=== PATIENT | female | born 1975 | race Caucasian/White ===

== ENCOUNTER 2018-08-05 14:27 | Emergency (ER) | END 2018-08-05 20:00 | disposition home or self-care (01) ==

== ENCOUNTER 2019-07-31 22:36 | Emergency (ER) | payer OTHER ==
[~2019-07-31] VITALS: Ht 162.6 cm; Wt 72.0 kg
[~2019-07-31 22:36] MED LIST: CEPH-443 PO; IBUP-1542 PO; ZOF8 PO
[2019-07-31 22:45] VITALS: Ht 162.6 cm; Wt 72.0 kg
[2019-08-01] MEDS ORDERED: SOD CHLORIDE 0.9% 1,000 ML IV STA (02:58)
[2019-08-01] MEDS ORDERED: ONDANSETRON 4 MG INJ IV STA (02:58)
[2019-08-01] MEDS ORDERED: KETOROLAC 15 MG INJ IV STA (02:58)
[2019-08-01] MEDS ORDERED: LIDOCAINE 2% VISC 10 ML CUP PO ONE (03:00)
[2019-08-01] MEDS ORDERED: AL HYDROX/MG HYDROX/SIMETH 30 ML CUP PO ONE (03:00)
[2019-08-01] MEDS ORDERED: CEFTRIAXONE 1 GM/50 ML (PMX) 50 ML IVPB ONE (04:00)
[2019-08-01 05:05] VITALS: BP 111/73; PULSE 72; RESP 20
== END 2019-08-01 05:06 | disposition home or self-care (01) ==
LOC: E/R 22:36
DX: N39.0 Urinary tract infection, site not specified (principal); R11.10 Vomiting, unspecified; R19.7 Diarrhea, unspecified
CPT/HCPCS: 36415; 76705; 80053; 81001; 81025; 83690; 85025; 85610; 85730; 96374; 96375; J0696; J1885; J2405; J7030; Z7502; Z7610; 81003